=== PATIENT | female | born 1970 | race Caucasian/White ===

== ENCOUNTER 2016-04-29 11:21 | Day surgery (SDC) | payer OTHER ==
[~2016-04-29 11:21] MED LIST: BUPIVACAINE 0.5% 30 ML SDV ONE; SKIN ADHESIVE (DERMABOND) 1 EACH TP ONE; ceFAZolin 2 GM in D5W 100 ML IV ONE
[2016-04-29] MEDS ORDERED: PROPOFOL 200 MG/20 ML VIAL ONE ×2 (12:24→13:06)
[2016-04-29] MEDS ORDERED: fentaNYL 100 MCG/2 ML INJ ONE ×2 (12:26→15:31)
[2016-04-29] MEDS ORDERED: MIDAZOLAM 2 MG/2 ML VIAL ONE (12:41)
[2016-04-29] MEDS ORDERED: DEXAMETHASONE 4 MG/ML VIAL ONE ×2 (12:43)
[2016-04-29] MEDS ORDERED: LIDOCAINE 2% 5 ML SDV ONE (12:43)
[2016-04-29] MEDS ORDERED: METOCLOPRAMIDE 10 MG/2 ML VIAL ONE (12:43)
[2016-04-29] MEDS ORDERED: ONDANSETRON 4 MG/2 ML VIAL ONE (12:43)
--- NOTE | 2016-04-29 14:23 | GOP ---
[f rep st] OPERATIVE REPORT DATE OF OPERATION: 04/29/2016 SURGEON: Kennedi Kirby MD ANESTHESIA: General. ANESTHESIOLOGIST: Ina Wade MD. PREOPERATIVE DIAGNOSIS: Lymphoma. POSTOPERATIVE DIAGNOSIS: Lymphoma. PROCEDURE PERFORMED: Left ultrasound-guided internal jugular PowerPort placement. FINDINGS: Tip in SVC/RA junction. SPECIMENS: None. ESTIMATED BLOOD LOSS: 10 cc. INDICATIONS: The patient is a 45-year-old, who was recently diagnosed with lymphoma. She requires a port for chemotherapy. DESCRIPTION OF PROCEDURE: The patient was brought into the operating room, placed supine on the tabl e, and general anesthesia was administered. Her bilateral neck and chest were prepped and draped in the usual sterile fashion. I infiltrated all sites with 0.5% Marcaine prior to making incisions. I tried to access the subclavian vein on the left side three times, without return of dark blood flow. I then used the ultrasound to access the internal jugular vein. I threaded the guidewire but it lorie bled back on itself. I then exchanged this. I removed the needle. I performed a new stick and then inserted a Glidewire. I had to perform several maneuvers in order to get the Glidewire to drop into the IVC. This was confirmed with fluoroscopy. I created a pocket to accommodate the port in the le ft chest. I tunneled the port up into the insertion site. Under fluoroscopy, I measured the port an d cut it to size. I placed a dilator and sheath over the wire. I removed the wire and the dilator. I threaded the catheter through the sheath and peeled away the sheath. Placement was confirmed with fluoroscopy. There was no kinking. The port withdrew blood easily and was flushed with heparin. T he pocket was closed with 3-0 Vicryl followed by 4-0 Monocryl. Dermabond applied. She was awakened in the operating room, extubated, transferred to PACU in stable condition. A chest x-ray is pending. /[id number]/MODL
--- NOTE | 2016-04-29 15:29 | DX ---
Portable Chest, Single View 29 April 2016 History: Left IJ Eyvswi-k-Awqb placement. Comparison: December 2015. Findings: Left Kmnycv-o-Ofht is seen in position extending caudally from the left internal jugular ve in with its tip in the superior vena cava. No evidence for pneumothorax. Mild atelectasis is seen in the right midlung and the left lung base. No evidence for pleural effusion. Heart size is normal. Impression: Left Koulcg-t-Dzmi catheter in good position without evidence for pneumothorax.
[2016-04-29] MEDS ORDERED: HYDROCODONE/APAP 5/325 TAB ONE (15:42)
--- NOTE | 2016-04-29 16:53 | DX ---
Intraoperative Fluoroscopy for Port Placement History: Gnwjhw-f-Lizy placement. Findings: Two images demonstrate placement of a left Rlvvxe-l-Adbm with an IJ approach with its tip i n the superior vena cava. Fluoroscopy time is 6.6 seconds. Cumulative dose is 0.98 mGy. Impression: Intraoperative fluoroscopy for placement of left Cyovlt-w-Guqv.
== END 2016-04-29 16:23 | disposition home or self-care (01) ==
LOC: FSGY 11:21
PROVIDERS: ATTEND Surgery
PROC: 0JH60VZ Insertion of Infusion Pump into Chest Subcutaneous Tissue and Fascia, Open Approach (ICD-10-PCS; principal; 2016-04-29 13:00)
PROC: 02HV33Z Insertion of Infusion Device into Superior Vena Cava, Percutaneous Approach (ICD-10-PCS; principal; 2016-04-29 13:00)
DX: Z46.89 Encounter for fitting and adjustment of other specified devices (principal); C85.90 Non-Hodgkin lymphoma, unspecified, unspecified site
CPT/HCPCS: 36563; 71010; 76001; C1769; C1788; J0690; J1100; J2250; J2405; J2704; J2765; J3010

== ENCOUNTER → 2016-05-03 | Outpatient (CLI) | payer OTHER ==
[~2016-05-03] MED LIST changes: -BUPIVACAINE 0.5% 30 ML SDV ONE; +MIDAZOLAM 2 MG/2 ML VIAL ONE; +PROPOFOL/EMULSION 500 MG/50 ML BOTTLE IV ONE; -SKIN ADHESIVE (DERMABOND) 1 EACH TP ONE; -ceFAZolin 2 GM in D5W 100 ML IV ONE; +fentaNYL 100 MCG/2 ML INJ ONE
--- NOTE | 2016-05-03 13:08 | DX ---
Portable Chest, Single View 11:10 a.m. Hours Indication: Evaluate port placement. Comparison: Portable chest dated April 29, 2016 Findings: The left anterior chest wall port is unchanged in configuration with the tip in the superio r vena cava. No kink or disruption of the continuity of the port. No pneumothorax, edema, or consolid ation. Mediastinal silhouette is normal caliber. No pleural effusion. Heart size normal. Surgical cli ps in the right upper quadrant are likely from previous cholecystectomy Impression: 1. Well-positioned port unchanged since 3 days prior. 2. Clear lungs. No pneumothorax or edema.
== END ==
LOC: FIMAGING 11:08
PROVIDERS: ATTEND Internal Medicine Hematology & Oncology
DX: Z45.2 Encounter for adjustment and management of vascular access device (principal)
CPT/HCPCS: J2250; J2704; J3010

== ENCOUNTER 2016-05-04 06:42 | Day surgery (SDC) | payer OTHER ==
[~2016-05-04 06:42] MED LIST changes: -MIDAZOLAM 2 MG/2 ML VIAL ONE; -PROPOFOL/EMULSION 500 MG/50 ML BOTTLE IV ONE; +ceFAZolin 2 GM/DEXTROSE 100 ML IV ONE; -fentaNYL 100 MCG/2 ML INJ ONE
[2016-05-04] MEDS ORDERED: SKIN ADHESIVE (DERMABOND) 1 EACH TP ONE (07:06)
[2016-05-04] MEDS ORDERED: BUPIVACAINE 0.5% 30 ML SDV ONE (07:07)
[2016-05-04] MEDS ORDERED: LIDOCAINE 1% 5 ML SDV ID PRN (07:52)
[2016-05-04] MEDS ORDERED: LR 1,000 ML IV ONE (07:52)
[2016-05-04] MEDS ORDERED: MIDAZOLAM 2 MG/2 ML VIAL ONE (08:04)
[2016-05-04] MEDS ORDERED: fentaNYL 100 MCG/2 ML INJ ONE (09:41)
[2016-05-04] MEDS ORDERED: HYDROCODONE/APAP 5/325 TAB ONE (09:42)
[2016-05-04] MEDS ORDERED: ONDANSETRON 4 MG/2 ML VIAL ONE (09:49)
[2016-05-04] MEDS ORDERED: DEXAMETHASONE 4 MG/ML VIAL ONE (09:50)
[2016-05-04] MEDS ORDERED: LIDOCAINE 2% 5 ML SDV ONE (09:50)
--- NOTE | 2016-06-02 06:16 | GOP ---
DATE OF OPERATION: 05/04/2016 SURGEON: Kennedi Kirby MD LAND COMMISSIONER: Roxana Polanco, GUIDO. ANESTHESIOLOGIST: Gerri Moreno MD. PREOPERATIVE DIAGNOSIS: Lymphoma with malfunctioning port. POSTOPERATIVE DIAGNOSIS: Lymphoma with malfunctioning port. PROCEDURE PERFORMED: Left port revision. FINDINGS: Both in the office and preoperatively the port felt very firm and appeared to have flippe d. The nurses could not access it. When I was in the operating room. The port appeared to be in t he correct orientation. SPECIMENS: None. ESTIMATED BLOOD LOSS: 5 cc. INDICATIONS: The patient is a 45-year-old woman, who recently had a port placed. When they tried t o access it at chemotherapy there were unable to access it. My partner evaluated her in the office and it appeared to have flipped. I examined her in the preop area and it seemed very firm and hard. DESCRIPTION OF PROCEDURE: The patient was brought into the operating room, placed supine on the tab le, and anesthesia was administered. Her chest was prepped and draped in the usual sterile fashion. I made an incision over her previous scar. I dissected down toward the level of the port. The po rt was in its correct orientation. I accessed it with a Gamboa needle. It withdrew blood and flushe d easily. I sutured it into place with 2-0 Vicryl. I closed the pocket with 3-0 Vicryl followed by 4-0 Monocryl. Dermabond applied. I then re-accessed the port again with a Gamboa needle and it sti ll withdrew blood easily and was flushed easily. I left the port access. She was awakened in the o perating room. /[id number]/MODL
== END 2016-05-04 11:20 | disposition home or self-care (01) ==
LOC: FSGY 06:42
PROVIDERS: ATTEND Surgery
PROC: 0JW Subcutaneous Tissue and Fascia, Revision (ICD-10-PCS; principal; 2016-05-04 08:15)
DX: Z45.2 Encounter for adjustment and management of vascular access device (principal); C81.90 Hodgkin lymphoma, unspecified, unspecified site
CPT/HCPCS: J0690; J1100; J2250; J2405; J3010

== ENCOUNTER → 2017-02-23 | Outpatient (CLI) | payer OTHER | LOC: FIMAGING 12:53 | PROVIDERS: ATTEND Family Medicine | DX: Z12.31 Encounter for screening mammogram for malignant neoplasm of breast (principal); Z80.3 Family history of malignant neoplasm of breast | CPT/HCPCS: G0202 ==

== ENCOUNTER → 2017-05-04 | Outpatient (CLI) | payer OTHER | LOC: FIMAGING 09:36 | PROVIDERS: ATTEND Nurse Practitioner Women's Health | DX: Z13.820 Encounter for screening for osteoporosis (principal); M81.0 Age-related osteoporosis without current pathological fracture; Z82.62 Family history of osteoporosis ==

== ENCOUNTER → 2017-12-14 | Outpatient (CLI) | payer OTHER | LOC: FIMAGING 11:16 | PROVIDERS: ATTEND Surgery | DX: Z45.2 Encounter for adjustment and management of vascular access device (principal); R91.8 Other nonspecific abnormal finding of lung field; C81.92 Hodgkin lymphoma, unspecified, intrathoracic lymph nodes ==